=== PATIENT | female | born 1960 | race African-American/Black ===

== ENCOUNTER 2018-11-08 21:12 | Emergency (ER) | payer MEDICAID, OTHER ==
[~2018-11-08] VITALS: Ht 165.1 cm; Wt 91.2 kg
[~2018-11-08 21:12] MED LIST: ASPI-1158; ASPIRIN; DILT-26; DILTIAZEM; LATA2.5D2; METOPROLOL; NAPR-681; NITR0.4T; NITROGLYCERIN; PRAV20TA57; PRAVASTATIN; PROMETHAZINE; TOPXL5
[2018-11-08] MEDS ORDERED: PREDNISONE 20MG TABLET PO SCH (23:45)
[2018-11-09 00:01] VITALS: BP 144/79
== END 2018-11-09 00:03 | disposition home or self-care (01) ==
LOC: ER 21:12
DX: R21 Rash and other nonspecific skin eruption (principal); E78.00 Pure hypercholesterolemia, unspecified; I10 Essential (primary) hypertension; H40.9 Unspecified glaucoma; Z98.51 Tubal ligation status; Z91.013 Allergy to seafood; Z79.899 Other long term (current) drug therapy
CPT/HCPCS: 99283; J7512

== ENCOUNTER 2024-10-17 03:33 | Emergency (ER) | payer OTHER, MEDICARE ==
[~2024-10-17] VITALS: Ht 165.1 cm; Wt 91.0 kg
[~2024-10-17 03:33] MED LIST changes: -ASPI-1158; +ASPI-1406; +LATA2.5D14; -LATA2.5D2
[2024-10-17 03:44] VITALS: O2SAT 100
[2024-10-17] MEDS ORDERED: NAPR-1176 MT (05:25)
[2024-10-17] MEDS ORDERED: CYCL5TAB3 MT (05:25)
[2024-10-17] MEDS ORDERED: LIDO700A15 TP (05:25)
[2024-10-17] MEDS: DEXAMETHASONE 10 MG/ML VIAL IM ONE (05:35)
[2024-10-17] MEDS: KETOROLAC 15MG/ML VIAL IM ONE (05:35)
[2024-10-17] MEDS: LIDOCAINE 5% PATCH TOP SCH (05:40)
[2024-10-17 06:24] VITALS: BP 149/100; PULSE 126; RESP 20; TEMP 36.9; O2SAT 100
== END 2024-10-17 06:29 | disposition home or self-care (01) ==
LOC: ER 03:33
DX: M54.6 Pain in thoracic spine (principal); E78.00 Pure hypercholesterolemia, unspecified; I10 Essential (primary) hypertension; Z98.51 Tubal ligation status; Z79.899 Other long term (current) drug therapy
CPT/HCPCS: 99285; 72128; 96372; J1885; J1100